=== PATIENT | male | born 1960 | race Caucasian/White ===

== ENCOUNTER 2016-08-07 23:00 | Emergency (ER) | payer MEDICARE, OTHER ==
--- NOTE | 2016-08-08 00:26 | ED Physician Chart ---
Chief Complaint/HPI - Patient Information Date Seen:: 08/08/16 Time Seen:: 23:50 Chief Complaint:: MECHNICAL FALL History of Present Illness:: THIS IS A 56 YO MALE WHO STATES THAT HE FELL AT HOME GETTING OUT OF BED THIS P.M. AND HE IS CONCERNED ABOUT SIGNIFICANT KNEE AND HIP INJURY. HE STATES THAT HE IS ALREADY SCHEDULED FOR SURGERY ON HIS HIP Allergies:: Allergies Allergy/AdvReac Type Severity Reaction Status Date / Time No Known Allergies Allergy Verified 08/07/16 23:45 Vitals:: Vital Signs - 8 hr 08/07/16 23:30 Temp 98.3 F HR 76 RR 20 BP 158/79 O2 Sat % 98 Historian:: Patient, Family Member Review:: Nurse's Note Reviewed Review of Systems - Review of Systems General/Constitutional: No fever, No chills, No weight loss, No weakness, No diaphoresis, No edema, No loss of appetite Skin: No skin lesions, No rash, No bruising Head: No headache, No light-headedness Eyes: No loss of vision, No pain, No diplopia ENT: No earache, No nasal drainage, No sore throat, No tinnitus Neck: No neck pain, No swelling, No thyromegaly, No stiffness, No mass noted Cardio Vascular: No chest pain, No palpitations, No PND, No orthopnea, No edema Pulmonary: No SOB, No cough, No sputum, No wheezing GI: No nausea, No vomiting, No diarrhea, No pain, No melena, No hematochezia, No constipation, No hematemesis G/U: No dysuria, No frequency, No hematuria Musculoskeletal: Bone or joint pain (RIGHT HIP AND KNEE PAIN), No back pain, No muscle pain Endocrine: No polyuria, No polydipsia Psychiatric: No prior psych history, No depression, No anxiety, No suicidal ideation Hematopoietic: No bruising, No lymphadenopathy Allergic/Immuno: No urticaria, No angioedema Neurological: No syncope, No focal symptoms, No weakness, No paresthesia, No headache, No seizure, No dizziness, No confusion, No vertigo Past Medical History - Past Medical History Obtainable: Yes Past Medical History: Other (OBESITY AND PSYCHOSIS) Family History: None Social History: Non Smoker, No Alcohol, No Drug Use Surgical History: Cholecystectomy, other (TONSILECTOMY) Psychiatricy History: Schizophrenia Family Medical History - Family Member Mother History Unknown: Yes Physical Exam - Physical Examination General/Constitutional: Awake, Well-developed, well-nourished, Alert, No distress, GCS 15, Non-toxic appearing, Ambulatory Head: Atraumatic Eyes: Lids, conjuctiva normal, PERRL, EOMI Skin: Nl inspection, No rash, No skin lesions, No ecchymosis, Well hydrated, No lymphadenopathy ENMT: External ears, nose nl, Nasal exam nl, Lips, teeth, gums nl Neck: Nontender, Full ROM w/o pain, No JVD, No nuchal rigidity, No bruit, No mass, No stridor Respiratory: Nl effort/Exclusion, Clear to Auscultation, No Wheeze/Rhonchi/Rales Cardio Vascular: RRR, No murmur, gallop, rubs, NL S1 S2 GI: No tenderness/rebounding/guarding, No organomegaly, No hernia, Normal BS's, Nondistended, No mass/bruits, No McBurney tenderness : No CVA tenderness Extremities: No tenderness or effusion, Full ROM, normal strength in all extremities, No edema, Normal digits & nails Other Extremities comments:: RIGHT HIP AND KNEE MILD TENDERNESS WITH NORMAL ROM. Neuro/Psych: Alert/oriented, DTR's symmetric, Normal sensory exam, Normal motor strength, Judgement/insight normal, Mood normal, Normal gait, No focal deficits Misc: normal gait, Normal back, No paraspinal tenderness ED Septic Shock - . Is Septic Shock (SBP<90, OR Lactate>4 mmol\L) present?: No - <6hrs of presentation: Vital Signs: Vital Signs - 8 hr 08/07/16 23:30 Temp 98.3 F HR 76 RR 20 BP 158/79 O2 Sat % 98
--- NOTE | 2016-08-08 09:30 | Diagnostic Imaging Report ---
Right hip (2 views) HISTORY: Pain, trauma Air is severe joint space narrowing. Sclerotic change noted along the articular surface of the right acetabulum. Femoral head retains normal contour. No focal lesions. IMPRESSION: 1. Severe degenerative joint disease
--- NOTE | 2016-08-08 09:31 | Diagnostic Imaging Report ---
Right knee (3 views) HISTORY: Pain, trauma Medial joint space narrowing. Degenerative changes with hypertrophic spur formation noted about the medial lateral tibial plateau and lateral femoral condyle regions. No acute abnormalities. No fractures. IMPRESSION: 1. No acute bony abnormalities 2. Degenerative joint disease
== END 2016-08-08 03:00 | disposition home or self-care (01) ==
LOC: ER 23:00
DX: S79.911A Unspecified injury of right hip, initial encounter (principal); S89.91XA Unspecified injury of right lower leg, initial encounter; Z90.49 Acquired absence of other specified parts of digestive tract; X58.XXXA Exposure to other specified factors, initial encounter; Y93.89 Activity, other specified; Y92.89 Other specified places as the place of occurrence of the external cause; Y99.8 Other external cause status
CPT/HCPCS: 73501; 73560-TC-RT; Z7502